=== PATIENT | female | born 1950 | race Caucasian/White ===

== ENCOUNTER 2023-06-15 04:12 | Observation (INO) ==
[2023-06-15] MEDS ORDERED: hydrALAZINE 20 mg/ml 1 ML Vial IV IV SLOW PU PRN (06:55)
[2023-06-15 07:04] LABS: ABS Eosinophils 0.1 10^3/uL (0.0-0.5); ABS Lymphocytes 1.3 10^3/uL (1.0-4.8); ABS Monocytes 0.6 10^3/uL (0.0-0.9); ABS Neutrophils 3.5 10^3/uL (1.5-7.6); ABS Nucleated RBC 0.02 10^3/ul; Eosinophil % 1.5 %; Hematocrit 43.3 % (35-45); Hemoglobin 15.3 g/dL (11.5-14.3); Lymphocyte % 24.2 %; Mean Corpuscular Hgb Conc 35.3 g/dL (31-36); Mean Corpuscular Volume 84.8 fL (80-97); Mean Platelet Volume 6.6 fL (7.5-11.2); Nucleated Red Blood Cells % 0.4 /100 WBC (0.0-0.4); Platelet Count 201 10^3/uL (150-450); Red Cell Distribution Width 14.2 % (12-17); White Blood Count 5.4 10^3/uL (3.8-11.8)
[2023-06-15 07:20] LABS: Albumin 3.6 g/dL (3.2-5.2); Albumin/Globulin Ratio 1.6 (1-3); Calcium 8.8 mg/dL (8.6-10.3); Creatinine, Serum 0.52 mg/dL (0.51-0.95); Globulin 2.3 g/dL (2-4); Potassium 3.7 mmol/L (3.5-5.0); Total Bilirubin 1.3 mg/dL (0.2-1.0); Total Protein 5.9 g/dL (6.4-8.9)
[2023-06-15] MEDS ORDERED: Enoxaparin 40 MG/0.4 ML SYR SUBCUT SCH (08:00)
[2023-06-15 08:09] LABS: Magnesium 1.8 mg/dL (1.9-2.7)
[2023-06-15] MEDS ORDERED: Buprenorphine 2 mg SL TAB SL SCH (09:00)
[2023-06-15 09:40] LABS: High Sensitivity Troponin 1 Hr 44 pg/mL (<15)
[2023-06-15 14:18] LABS: TSH Ultra Thyroid Stim Horm 1.75 mcIU/mL (0.34-5.60)
[2023-06-15 16:17] VITALS: BP 134/78
== END 2023-06-15 16:17 | disposition home or self-care (01) ==
LOC: ED 04:12 → EDHOLD 04:12 → SUATTDRO 06:49 → EDHOLD 16:16
PROVIDERS: ADMIT Hospitalist; ATTEND Internal Medicine